=== PATIENT | female | born 1960 | race Caucasian/White ===

== ENCOUNTER → 2016-12-14 | Outpatient (CLI) | payer MEDICARE ==
[2016-12-14 11:31] LABS: BASO # 0.1 K/mm3 (0.0-0.2); BASO % 0.5 % (0.0-1.0); EOS # 0.2 K/mm3 (0.0-0.50); EOS % 1.4 % (0.0-3.0); LARGE UNSTAINED CELL # 0.2 K/mm3 (0.0-0.4); LARGE UNSTAINED CELL % 1.5 % (0.0-4.0); LYMPH # 2.9 K/mm3 (1.5-4.5); LYMPH % 22.8 % (24.0-44.0); MEAN CORPUSCULAR HEMOGLOBIN 29.9 pg (27.0-33.0); MEAN CORPUSCULAR HGB CONC 33.1 g/dl (32.0-36.5); MEAN CORPUSCULAR VOLUME 90.2 fl (80.0-96.0); MONO # 0.6 K/mm3 (0.0-0.8); MONO % 4.7 % (0.0-5.0); NEUTROPHILS # 8.3 K/mm3 (1.8-7.7); NEUTROPHILS % 69.2 % (36.0-66.0); PLATELET COUNT, AUTOMATED 244 k/mm3 (150-450); RED CELL DISTRIBUTION WIDTH 12.9 % (11.5-14.5); WHITE BLOOD COUNT 11.9 K/mm3 (4.0-10.0)
[2016-12-14 11:37] LABS: INR 0.87
[2016-12-14 12:14] LABS: ALBUMIN 4.3 GM/DL (3.2-5.2); ALBUMIN/GLOBULIN RATIO 1.08 (1.00-1.93); ALKALINE PHOSPHATASE 173 U/L (45-117); ALT/SGPT 47 U/L (12-78); ANION GAP 8 MEQ/L (8-16); AST/SGOT 21 U/L (15-37); BILIRUBIN,TOTAL 0.6 MG/DL (0.2-1.0); BLOOD UREA NITROGEN 8 MG/DL (7-18); CALCIUM LEVEL 9.6 MG/DL (8.5-10.1); CARBON DIOXIDE LEVEL 31 MEQ/L (21-32); CHLORIDE LEVEL 101 MEQ/L (98-107); CHOLESTEROL LEVEL 263 MG/DL (<200); CREATININE FOR GFR 0.68 MG/DL (0.55-1.02); GLOMERULAR FILTRATION RATE > 60.0 (>51); GLUCOSE, FASTING 135 MG/DL (70-105); POTASSIUM SERUM 4.6 MEQ/L (3.5-5.1); SODIUM LEVEL 140 MEQ/L (136-145); TOTAL PROTEIN 8.3 GM/DL (6.4-8.2); TRIGLYCERIDES LEVEL 344 MG/DL (<150)
--- NOTE | 2016-12-14 13:35 | ECGEPIP ---
Stationary ECG Study [facility] Test Date: 2016-12-14 Pat Name: PANCHO CHARLES Department: Room: - Gender: F Marketing Ambassador: : 1960 Requested By: Cheli Block Order Number: [id number] Reading MD: Elvira Grijalva Measurements Intervals [place] Rate: 90 P: 70 CA: 143 QRS: 83 QRSD: 94 T: 53 QT: 358 QTc: 439 Interpretive Statements SINUS RHYTHM probable EARLY REPOLAR NO PRIOR Electronically Signed On 12-14-2016 13:35:43 EST by Elvira Grijalva
--- NOTE | 2016-12-15 02:30 | REP ---
Clinical: Preoperative assessment . Comparison: 01/06/2010 . Technique: PA and lateral. Findings: The mediastinum and cardiac silhouette are normal. The lung terry are clear and without acute consolidation, effusion, or pneumothorax. The skeletal structures are intact and normal. Impression: 1. No acute cardiopulmonary process. Signed by Larry Arguello MD 12/15/2016 02:22 A
== END ==
LOC: M LAB 10:39
PROVIDERS: ATTEND Nurse Practitioner Family
DX: Z01.818 Encounter for other preprocedural examination (principal); E78.5 Hyperlipidemia, unspecified; I10 Essential (primary) hypertension; E11.9 Type 2 diabetes mellitus without complications

== ENCOUNTER → 2017-08-30 | Outpatient (CLI) | payer MEDICARE, MEDICAID ==
--- NOTE | 2017-08-30 13:44 | REP ---
Whole body radionuclide bone scan: The patient has history of breast carcinoma. She complains of low back pain on the left . Comparison is 09/03/2011. The current study includes whole body scan in AP and PA projections, lateral views of the calvarium, oblique views of the ribs, oblique views of the pelvis and lateral views of the knees. There are no focal areas of abnormal uptake as previously. There is a degenerative pattern of uptake in the shoulders bilaterally, knees bilaterally and ankles bilaterally. This is unchanged. No abnormal uptake is identified in the lumbar spine, sacroiliac articulations or hip articulations. Impression: Essentially negative whole body radionuclide bone scan. There is a degenerative pattern of uptake in the shoulders, knees and ankles, unchanged. No focal abnormal uptake is identified, particularly in the lumbar spine or pelvis. Of symptoms persist or worsen, consider MRI. The study is performed with 22 mCi of technetium 99m labeled MDP. Signed by Luis Spears MD 08/30/2017 01:36 P
== END ==
LOC: M RAD 08:12
PROVIDERS: ATTEND Internal Medicine Hematology & Oncology
DX: M54.5 Low back pain (principal); C50.911 Malignant neoplasm of unspecified site of right female breast
CPT/HCPCS: 78306; A9503

== ENCOUNTER → 2018-07-12 | Outpatient (REF) | payer MEDICARE, MEDICAID, BC, OTHER | LOC: M SFHCPLAZ 10:35 | DX: C44.629 Squamous cell carcinoma of skin of left upper limb, including shoulder (principal); C44.529 Squamous cell carcinoma of skin of other part of trunk | CPT/HCPCS: 88305 ==

== ENCOUNTER → 2018-08-11 | Outpatient (REF) | payer MEDICARE, MEDICAID | LOC: M LAB REF 13:07 | DX: L57.0 Actinic keratosis (principal) | CPT/HCPCS: 88305 ==

== ENCOUNTER → 2018-08-16 | Outpatient (REF) | payer MEDICARE, MEDICAID | LOC: M LAB REF 17:17 | DX: C44.629 Squamous cell carcinoma of skin of left upper limb, including shoulder (principal) | CPT/HCPCS: 88305 ==

== ENCOUNTER → 2019-01-20 | Outpatient (CLI) | payer MEDICARE, MEDICAID ==
[~2019-01-20] MED LIST: EFFE150C2 PO; PHEN-239 PO; SPIR50TA4 PO; TRUL0.5I SC; VITA100066 PO; XANA0.5T PO
[2019-01-20 14:53] LABS: BLOOD UREA NITROGEN 10 MG/DL (7-18); CARBON DIOXIDE LEVEL 28 MEQ/L (21-32); CHLORIDE LEVEL 103 MEQ/L (98-107); CREATININE FOR GFR 0.65 MG/DL (0.55-1.30); GLOMERULAR FILTRATION RATE > 60.0 (>51); GLUCOSE, FASTING 202 MG/DL (70-100); POTASSIUM SERUM 4.1 MEQ/L (3.5-5.1); SODIUM LEVEL 137 MEQ/L (136-145)
--- NOTE | 2019-01-21 13:35 | ECGEPIP ---
Stationary ECG Study [facility] Test Date: 2019-01-20 Pat Name: PANCHO CHARLES Department: Room: - Gender: F Physician Pediatrician: : 1960 Requested By: ITZ COLLINS Order Number: [id number] Reading MD: Andrae Greene Measurements Intervals [place] Rate: 81 P: 66 MT: 159 QRS: 77 QRSD: 100 T: 49 QT: 366 QTc: 427 Interpretive Statements Normal sinus rhythm Normal EKG No significant change since prior tracing of 12/14/2016 Electronically Signed On 01-21-2019 13:35:21 EDT by Andrae Greene
== END ==
LOC: M LAB 13:35
PROVIDERS: ATTEND Anesthesiology
DX: Z01.818 Encounter for other preprocedural examination (principal); E11.9 Type 2 diabetes mellitus without complications; K21.9 Gastro-esophageal reflux disease without esophagitis; F41.9 Anxiety disorder, unspecified; F32.9 Major depressive disorder, single episode, unspecified; Z85.3 Personal history of malignant neoplasm of breast; Z92.21 Personal history of antineoplastic chemotherapy; Z92.3 Personal history of irradiation

== ENCOUNTER 2019-03-10 05:43 | Day surgery (SDC) | payer MEDICARE, MEDICAID ==
[~2019-03-10] VITALS: Ht 162.6 cm; Wt 90.2 kg
[~2019-03-10 05:43] MED LIST changes: +LR 1,000 ML IV ONE
[2019-03-10] MEDS ORDERED: LIDOCAINE 1% MDV 20ML VIAL SQ PRN (06:00)
[2019-03-10] MEDS ORDERED: LR 1,000 ML IV ONE (06:30)
[2019-03-10 06:35] LABS: HEMATOCRIT 37.8 % (36.0-47.0); HEMOGLOBIN 12.9 g/dl (12.0-15.5); MEAN CORPUSCULAR HEMOGLOBIN 30.2 pg (27.0-33.0); MEAN CORPUSCULAR HGB CONC 34.1 g/dl (32.0-36.5); MEAN CORPUSCULAR VOLUME 88.5 fl (80.0-96.0); PLATELET COUNT, AUTOMATED 231 10^3/uL (150-450); RED BLOOD COUNT 4.27 10^6/uL (4.00-5.40); WHITE BLOOD COUNT 10.3 10^3/uL (4.0-10.0)
[2019-03-10] MEDS ORDERED: ATOR1TAB21 PO (07:04)
[2019-03-10] MEDS ORDERED: GLIP10TA PO (07:04)
[2019-03-10] MEDS ORDERED: BUPIVACAINE HCL 0.25% 30 ML VIAL As Ordered ONE (07:13)
[2019-03-10] MEDS ORDERED: BUPIVACAINE/EPIN 0.25% 30 ML VIAL As Ordered ONE (07:13)
[2019-03-10] MEDS ORDERED: ceFAZolin 2 GM/D5W 50 ML IV BAG (J0690 PER 500MG) As Ordered ONE (07:55)
[2019-03-10] MEDS ORDERED: METOCLOPRAMIDE INJ 10MG/2ML VIAL (J2765) As Ordered ONE (08:00)
[2019-03-10] MEDS ORDERED: PROPOFOL 200 MG/20 ML VIAL As Ordered ONE (08:00)
[2019-03-10] MEDS ORDERED: MIDAZOLAM INJ 2 MG/2 ML VIAL (J2250) As Ordered ONE (08:00)
[2019-03-10] MEDS ORDERED: LIDOCAINE 2% INJ 100 MG/5 ML SDV (FOR ANES.) As Ordered ONE (08:00)
[2019-03-10] MEDS ORDERED: ONDANSETRON 4MG/2ML VIAL (J2405) As Ordered ONE (08:00)
[2019-03-10] MEDS ORDERED: KETOROLAC 60 MG/2 ML VIAL (J1885) As Ordered ONE (08:00)
[2019-03-10] MEDS ORDERED: fentaNYL 250 MCG/5 ML INJECTION (J3010) As Ordered ONE (08:00)
[2019-03-10] MEDS ORDERED: ePHEDrine SULFATE 25 MG/5 ML(5MG/ML) SYRINGE As Ordered ONE (08:13)
[2019-03-10] MEDS ORDERED: OXYC1TAB23 PO (09:30)
[2019-03-10] MEDS ORDERED: IBUP-1022 PO (09:31)
[2019-03-10] MEDS ORDERED: LR 1,000 ML IV SCH ×2 (09:45)
[2019-03-10] MEDS ORDERED: NORCO, ANEXSIA 5/325MG TABLET (HYDROcodone/ACETAMINOPHEN) PO PRN (09:45)
[2019-03-10] MEDS ORDERED: fentaNYL 100 MCG/2 ML INJECTION (J3010) IV PRN (09:45)
[2019-03-10] MEDS ORDERED: ONDANSETRON 4MG/2ML VIAL (J2405) IV PRN (09:45)
[2019-03-10] MEDS ORDERED: PERCOCET 5MG/325MG TAB PO PRN (09:45)
[2019-03-10 09:59] VITALS: BP 106/58
--- NOTE | 2019-03-10 17:56 | RO ---
DATE OF PROCEDURE: 03/10/2019 PREPROCEDURE DIAGNOSIS: Stress urinary incontinence, cystocele. POSTPROCEDURE DIAGNOSIS: Stress urinary incontinence, cystocele. PROCEDURE: Anterior vaginal repair, tension-free vaginal tape obturator (TVTO), cystoscopy. SURGEON: Ge Francois MD GYMNASTICS COACH OR INSTRUCTOR: Ag Solomon DO ANESTHESIA: General endotracheal. ESTIMATED BLOOD LOSS: 150 mL. URINE OUTPUT: 100 mL. FINDINGS: Grade 2 to 3 cystocele. Normal appearing bladder mucosa. Bilateral ureteral jets identified on cystoscopy. DESCRIPTION OF PROCEDURE: The patient was taken to the operating room where general endotracheal anesthesia was induced. She was prepped and draped in a sterile fashion in the dorsal lithotomy position. Bladder was emptied with a catheter. Appropriate areas of the groin and vagina were marked with the marking pen. Those areas were injected with 0.25% Marcaine solution. The anterior vagina was grasped bilaterally with Allis clamps. An incision was created with Metzenbaum scissors. Plane between the vaginal mucosa and the bladder was dissected with a combination of blunt and sharp dissection in a vertical fashion. The bladder was dissected off the vagina with a combination of blunt and sharp dissection. Once adequately mobilized, a plicating suture was placed bilaterally to elevate the bladder. A total of two sutures was placed. Excess vaginal mucosa was excised with Metzenbaum scissors. The vaginal mucosa was closed with #2-0 Vicryl in a running locked fashion. The vaginal mucosa overlying the urethra was grasped approximately 1 cm from the urethral meatus. A second Allis clamp was used to grasp the vaginal mucosa approximately 1 cm distal to this. This was a separate incision from the anterior vaginal repair. Scalpel was used to create a vertical incision in the vagina. Metzenbaum scissors were used to sharply dissect the perivesical space at the urethrovaginal junction. The Gynecare TVT device was utilized. The wing guide was placed. The device was inserted through the right incision, and exited through the skin in the groin which had previously been marked. The same was performed on the opposite side. The TVT tape was pulled into place at the midline. A Maddy clamp was placed between the mesh and urethra at all times to ensure a tension-free application. Once adequately positioned, the protective sheath was removed. Excess mesh was excised. The area was irrigated with saline. The vaginal mucosa was closed with #2-0 Vicryl in a running locked fashion. Cystoscopy was performed using a 70-degree cystoscope. Bilateral ureteral jets were identified. There was no evidence of injury to the bladder. All instruments were removed. Sponge, instrument and needle counts were correct.
== END 2019-03-10 12:13 | disposition home or self-care (01) ==
LOC: M SDC 05:43
PROVIDERS: ATTEND Specialist
DX: N39.3 Stress incontinence (female) (male) (principal); N81.10 Cystocele, unspecified; E11.40 Type 2 diabetes mellitus with diabetic neuropathy, unspecified; Z85.3 Personal history of malignant neoplasm of breast; K21.9 Gastro-esophageal reflux disease without esophagitis; F41.9 Anxiety disorder, unspecified; F32.9 Major depressive disorder, single episode, unspecified; Z92.3 Personal history of irradiation; Z92.21 Personal history of antineoplastic chemotherapy; Z79.899 Other long term (current) drug therapy; Z88.1 Allergy status to other antibiotic agents
CPT/HCPCS: 36415; 57240; 57288; 85027; 88302; C1771; J0690; J1885; J2250; J2405; J2765; J3010

== ENCOUNTER → 2020-06-18 | Outpatient (REF) | payer MEDICARE ==
[~2020-06-18] MED LIST changes: +ATOR1TAB21 PO; +GABA-843 PO; +GLIP10TA PO; +IBUP-1022 PO; -LR 1,000 ML IV ONE; +OXYC1TAB23 PO; +PHEN37.52 PO
== END ==
LOC: M SFHCLUC 08:41
PROVIDERS: ATTEND Physician Assistant
DX: R30.0 Dysuria (principal)
CPT/HCPCS: 87088; 87186; 87880; G0463

== ENCOUNTER → 2020-07-06 | Outpatient (CLI) | payer MEDICARE | LOC: M LABSMTC 08:48 | PROVIDERS: ATTEND Surgery | DX: Z20.828 Contact with and (suspected) exposure to other viral communicable diseases (principal) | CPT/HCPCS: C9803; U0003 ==

== ENCOUNTER → 2021-02-14 | Outpatient (CLI) | payer MEDICARE ==
[~2021-02-14] MED LIST changes: +GABA-282 PO; -GABA-843 PO
[2021-02-14 11:24] LABS: BLOOD UREA NITROGEN 11 MG/DL (7-18); CALCIUM LEVEL 9.6 MG/DL (8.5-10.1); CARBON DIOXIDE LEVEL 29 MEQ/L (21-32); CHLORIDE LEVEL 103 MEQ/L (98-107); CREATININE FOR GFR 0.61 MG/DL (0.55-1.30); GLOMERULAR FILTRATION RATE > 60.0 (>51); GLUCOSE, FASTING 149 MG/DL (70-100); POTASSIUM SERUM 4.1 MEQ/L (3.5-5.1); SODIUM LEVEL 138 MEQ/L (136-145)
== END ==
LOC: M LAB 10:12
PROVIDERS: ATTEND Internal Medicine Endocrinology, Diabetes & Metabolism
DX: E11.65 Type 2 diabetes mellitus with hyperglycemia (principal)

== ENCOUNTER → 2021-11-12 | Outpatient (REF) | payer MEDICARE ==
[~2021-11-12] MED LIST changes: -PHEN37.52 PO; +PHEN37.58 PO
== END ==
LOC: M LAB REF 14:04
PROVIDERS: ATTEND Nurse Practitioner Family
DX: L57.0 Actinic keratosis (principal)
CPT/HCPCS: 11102; 88305; G0463

== ENCOUNTER 2023-02-15 11:50 | Emergency (ER) | payer MEDICARE ==
[~2023-02-15] VITALS: Ht 167.6 cm; Wt 84.9 kg
[2023-02-15] MEDS ORDERED: OZEM2INJ (12:11)
[2023-02-15] MEDS ORDERED: METF-838 (12:11)
[2023-02-15 14:08] VITALS: BP 129/72
== END 2023-02-15 14:10 | disposition home or self-care (01) ==
LOC: M ED 11:50
DX: S29.011A Strain of muscle and tendon of front wall of thorax, initial encounter (principal); W19.XXXA Unspecified fall, initial encounter; Y92.89 Other specified places as the place of occurrence of the external cause; E11.9 Type 2 diabetes mellitus without complications; K21.9 Gastro-esophageal reflux disease without esophagitis; M54.9 Dorsalgia, unspecified; F41.9 Anxiety disorder, unspecified; F32.9 Major depressive disorder, single episode, unspecified; Z85.3 Personal history of malignant neoplasm of breast; Z79.899 Other long term (current) drug therapy; Z88.1 Allergy status to other antibiotic agents